=== PATIENT | female | born 1970 | race Asian ===

== ENCOUNTER 2017-02-13 09:06 | Emergency (ER) | payer OTHER ==
[~2017-02-13] VITALS: Ht 170.2 cm; Wt 49.9 kg
--- NOTE | 2017-02-13 09:10 | NUR ---
AAOX3, CAME TO ER C/O HEADACHE, HX OF MIGRAINE, NASAL CONGESTION, NAUSEA AND VOMITING. DENIES DIARRHEA. PT IS TAKING FLONASE FOR NASAL CONGESTION TO NO RELIEF. SKIN IS WARM AND DRY. RESP IS EVEN AND UNLABORED WITH NAD NOTED. NEURO INTACT. 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 AWAITING MD FOR EVAL.
[2017-02-13] MEDS ORDERED: METOCLOPRAMIDE HCL 10 MG/2 ML VIAL ONE (09:44)
[2017-02-13] MEDS ORDERED: diphenhydrAMINE HCL 50 MG/ML VIAL ONE (09:44)
[2017-02-13] MEDS ORDERED: HYDROMORPHONE 1 MG/1 ML DISP.SYRIN ONE (09:45)
[2017-02-13] MEDS ORDERED: IV NS 0.9% 50 ML IV ONE (09:45)
[2017-02-13] MEDS ORDERED: IV NS 0.9% 1,000 ML ONE (09:45)
[2017-02-13] MEDS ORDERED: IV SET PRIMARY 1 EA INFUS.SET MC ONE (09:45)
[2017-02-13] MEDS ORDERED: SECONDARY IV SET 1 EA INFUS.SET MC ONE (09:45)
[2017-02-13] MEDS: IV NS 0.9% 1,000 ML BAG IV ONE (09:55)
[2017-02-13] MEDS: diphenhydrAMINE HCL 50 MG/ML VIAL IV ONE (09:56)
[2017-02-13] MEDS: HYDROMORPHONE INJ 2 MG/ML DISP.SYRIN IV ONE (09:58)
[2017-02-13] MEDS: METOCLOPRAMIDE HCL 10 MG/2 ML VIAL IV ONE (10:00)
--- NOTE | 2017-02-13 10:00 | NUR ---
PATIENT PLACED ON THE MONITOR AND NC AT 2L/MIN
[2017-02-13 11:26] VITALS: BP 125/75
--- NOTE | 2017-02-13 11:26 | NUR ---
IV removed. Catheter intact and site benign. Pressure and 4x4 applied to site. No bleeding noted.Patient discharged to home in stable condition. Written and verbal after care instructions given. Patient verbalizes understanding of instruction.
== END 2017-02-13 11:28 | disposition home or self-care (01) ==
LOC: ER 09:08
DX: G43.909 Migraine, unspecified, not intractable, without status migrainosus (principal)
CPT/HCPCS: A4216; A4606; J1170; J1200; J2765; J7030; Z7610